=== PATIENT | male | born 1995 | race Caucasian/White ===

== ENCOUNTER 2021-01-15 11:35 | Inpatient (IN) | payer OTHER ==
[~2021-01-15] VITALS: Ht 172.7 cm; Wt 186.5 kg
[~2021-01-15 11:35] MED LIST: BACTRIM DS TAB1 EACH PO; KEFLEX250 MG PO; NEXIUM 40MG CAP40 MG PO; NORCO 5-325 TA1 EACH PO; ONDANSETRON ODT4 MG PO; PEPCID AC20 MG PO
[2021-01-15 12:14] LABS: BASOPHIL 0.2 % (0-2); EOSINOPHIL 0 % (0-5); HCT 41.9 % (42.0-52.0); HGB 13.1 g/dl (13.2-18.0); LYMPHOCYTE 9.5 % (15-48); MCH 25.1 pg (25.0-31.0); MCHC 31.3 g/dL (32.0-36.0); MCV 80.3 fL (78.0-100.0); MONOCYTE 7.8 % (0-12); MPV 9.4 fL (6.0-9.5); NEUTROPHIL 82.2 % (41-80); NRBC 0; PLT 123 K/uL (150-400); RBC 5.22 M/uL (4.70-6.00); WBC 6.4 K/uL (4.0-10.5)
[2021-01-15 12:37] LABS: ALBUMIN 2.8 g/dL (3.4-5.0); BILIRUBIN - TOTAL 0.4 mg/dL (0.2-1.0); CREATININE 0.75 mg/dL (0.67-1.17); GLOBULIN (CALCULATION) 4.6 g/dL; POTASSIUM 3.2 mmol/L (3.5-5.1); TOTAL PROTEIN 7.4 g/dL (6.4-8.2)
[2021-01-16 03:47] LABS: BASOPHIL 0 % (0-2); EOSINOPHIL 0 % (0-5); HCT 44.2 % (42.0-52.0); HGB 13.4 g/dl (13.2-18.0); LYMPHOCYTE 7.3 % (15-48); MCHC 30.3 g/dL (32.0-36.0); MCV 82.6 fL (78.0-100.0); MONOCYTE 7.7 % (0-12); MPV 9.6 fL (6.0-9.5); NEUTROPHIL 84.6 % (41-80); NRBC 0; PLT 138 K/uL (150-400); RBC 5.35 M/uL (4.70-6.00); RDW 14.2 % (11.5-14.0); WBC 4.7 K/uL (4.0-10.5)
[2021-01-16 04:26] LABS: ALBUMIN 2.7 g/dL (3.4-5.0); BILIRUBIN - TOTAL 0.3 mg/dL (0.2-1.0); BUN/CREAT RATIO (CALC) 10.7 RATIO; CREATININE 0.75 mg/dL (0.67-1.17); GLOBULIN (CALCULATION) 4.9 g/dL; TOTAL PROTEIN 7.6 g/dL (6.4-8.2)
[2021-01-16 04:40] LABS: C-REACTIVE PROTEIN 15.8 mg/dL (<=0.90)
[2021-01-18 06:15] LABS: BASOPHIL 0.1 % (0-2); EOSINOPHIL 0 % (0-5); HCT 40.3 % (42.0-52.0); HGB 12.2 g/dl (13.2-18.0); LYMPHOCYTE 8.9 % (15-48); MCH 25.3 pg (25.0-31.0); MCHC 30.3 g/dL (32.0-36.0); MCV 83.4 fL (78.0-100.0); MPV 9.2 fL (6.0-9.5); NEUTROPHIL 80.2 % (41-80); NRBC 0; PLT 188 K/uL (150-400); RBC 4.83 M/uL (4.70-6.00); RDW 14.6 % (11.5-14.0); WBC 8.7 K/uL (4.0-10.5)
[2021-01-18 06:35] LABS: ALBUMIN 2.6 g/dL (3.4-5.0); BILIRUBIN - TOTAL 0.3 mg/dL (0.2-1.0); CREATININE 0.5 mg/dL (0.67-1.17); GLOBULIN (CALCULATION) 3.6 g/dL; MAGNESIUM 2.2 mg/dL (1.8-2.4); POTASSIUM 3.7 mmol/L (3.5-5.1); TOTAL PROTEIN 6.2 g/dL (6.4-8.2)
--- NOTE | 2021-01-18 10:00 | NUR ---
01/18/21 Mr. Davis does not have a PCP. A referral was made to the [employer], Toby. A [facility] application is pending for Medicaid. - Mr. Davis chose [facility] should 02 be required at discharge. Mr. Davis was educated to financial applications available at [employer].
[2021-01-18 16:14] LABS: HCT 41.6 % (42.0-52.0); HGB 12.6 g/dl (13.2-18.0); MCH 25.1 pg (25.0-31.0); MCHC 30.3 g/dL (32.0-36.0); MPV 9.3 fL (6.0-9.5); RBC 5.01 M/uL (4.70-6.00); RDW 14.5 % (11.5-14.0)
[2021-01-19 07:38] LABS: CREATININE 0.5 mg/dL (0.67-1.17); MAGNESIUM 2.1 mg/dL (1.8-2.4); POTASSIUM 3.3 mmol/L (3.5-5.1)
--- NOTE | 2021-01-19 17:19 | NUR ---
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 PER DR CASTELLANO.
[2021-01-20 06:40] LABS: BASOPHIL 0.2 % (0-2); EOSINOPHIL 0.3 % (0-5); HCT 41.2 % (42.0-52.0); HGB 12.7 g/dl (13.2-18.0); MCH 25.1 pg (25.0-31.0); MCHC 30.8 g/dL (32.0-36.0); MCV 81.6 fL (78.0-100.0); MONOCYTE 8.5 % (0-12); MPV 9.9 fL (6.0-9.5); NEUTROPHIL 77.2 % (41-80); NRBC 0; PLT 233 K/uL (150-400); RBC 5.05 M/uL (4.70-6.00); RDW 14.2 % (11.5-14.0); WBC 9.1 K/uL (4.0-10.5)
[2021-01-20 07:19] LABS: ALBUMIN 2.5 g/dL (3.4-5.0); BILIRUBIN - TOTAL 0.3 mg/dL (0.2-1.0); BUN/CREAT RATIO (CALC) 19.6 RATIO; C-REACTIVE PROTEIN 2.5 mg/dL (<=0.90); CREATININE 0.56 mg/dL (0.67-1.17); POTASSIUM 3.4 mmol/L (3.5-5.1); TOTAL PROTEIN 6.5 g/dL (6.4-8.2)
[2021-01-21 07:00] LABS: BASOPHIL 0.2 % (0-2); EOSINOPHIL 0.5 % (0-5); HCT 42.2 % (42.0-52.0); LYMPHOCYTE 12.3 % (15-48); MCHC 30.8 g/dL (32.0-36.0); MCV 81.2 fL (78.0-100.0); MONOCYTE 8.4 % (0-12); MPV 9.2 fL (6.0-9.5); NEUTROPHIL 76.3 % (41-80); NRBC 0; PLT 267 K/uL (150-400); RDW 14.2 % (11.5-14.0); WBC 10.2 K/uL (4.0-10.5)
[2021-01-21 07:34] LABS: ALBUMIN 2.5 g/dL (3.4-5.0); BILIRUBIN - TOTAL 0.4 mg/dL (0.2-1.0); BUN/CREAT RATIO (CALC) 20.3 RATIO; C-REACTIVE PROTEIN 1.5 mg/dL (<=0.90); CREATININE 0.59 mg/dL (0.67-1.17); GLOBULIN (CALCULATION) 3.9 g/dL; POTASSIUM 3.8 mmol/L (3.5-5.1); TOTAL PROTEIN 6.4 g/dL (6.4-8.2)
[2021-01-22 05:19] LABS: BASOPHIL 0.2 % (0-2); EOSINOPHIL 0.6 % (0-5); HCT 43.6 % (42.0-52.0); HGB 13.4 g/dl (13.2-18.0); LYMPHOCYTE 14.4 % (15-48); MCH 25.1 pg (25.0-31.0); MCHC 30.7 g/dL (32.0-36.0); MCV 81.8 fL (78.0-100.0); MPV 9.3 fL (6.0-9.5); NEUTROPHIL 72.8 % (41-80); NRBC 0; PLT 292 K/uL (150-400); RBC 5.33 M/uL (4.70-6.00); RDW 14.6 % (11.5-14.0); WBC 10.5 K/uL (4.0-10.5)
[2021-01-22 05:31] LABS: ALBUMIN 2.7 g/dL (3.4-5.0); BILIRUBIN - TOTAL 0.4 mg/dL (0.2-1.0); BUN/CREAT RATIO (CALC) 22.4 RATIO; C-REACTIVE PROTEIN 1.1 mg/dL (<=0.90); CREATININE 0.58 mg/dL (0.67-1.17); GLOBULIN (CALCULATION) 3.9 g/dL; POTASSIUM 4.1 mmol/L (3.5-5.1); TOTAL PROTEIN 6.6 g/dL (6.4-8.2)
[2021-01-23 05:05] LABS: BASOPHIL 0.1 % (0-2); EOSINOPHIL 0.2 & (0-5); HCT 44.3 % (42.0-52.0); HGB 13.8 g/dl (13.2-18.0); LYMPHOCYTE 8.2 % (15-48); MCH 25.3 pg (25.0-31.0); MCHC 31.2 g/dL (32.0-36.0); MCV 81.3 fL (78.0-100.0); MONOCYTE 8.9 % (0-12); NEUTROPHIL 80.7 % (41-80); PLT 302 K/uL (150-400); RBC 5.45 M/uL (4.70-6.00); RDW 14.4 % (11.5-14.0); WBC 12.45 K/uL (4.0-10.5)
[2021-01-23 05:10] LABS: ALBUMIN 2.8 g/dL (3.4-5.0); BILIRUBIN - TOTAL 0.4 mg/dL (0.2-1.0); BUN/CREAT RATIO (CALC) 23.1 RATIO; CREATININE 0.52 mg/dL (0.67-1.17); POTASSIUM 4.3 mmol/L (3.5-5.1); TOTAL PROTEIN 6.8 g/dL (6.4-8.2)
[2021-01-24 04:16] LABS: BASOPHIL 0.1 % (0-2); EOSINOPHIL 0.5 & (0-5); HCT 44.9 % (42.0-52.0); HGB 13.6 g/dl (13.2-18.0); MCH 24.9 pg (25.0-31.0); MCHC 30.3 g/dL (32.0-36.0); MCV 82.1 fL (78.0-100.0); MPV 8.9 fL (6.0-9.5); NEUTROPHIL 77.9 % (41-80); PLT 295 K/uL (150-400); RBC 5.47 M/uL (4.70-6.00); RDW 14.6 % (11.5-14.0); WBC 12.28 K/uL (4.0-10.5)
[2021-01-24 04:50] LABS: ALBUMIN 2.7 g/dL (3.4-5.0); BILIRUBIN - TOTAL 0.3 mg/dL (0.2-1.0); BUN/CREAT RATIO (CALC) 21.7 RATIO; C-REACTIVE PROTEIN 0.3 mg/dL (<=0.90); CREATININE 0.69 mg/dL (0.67-1.17); GLOBULIN (CALCULATION) 3.8 g/dL; POTASSIUM 4.1 mmol/L (3.5-5.1); TOTAL PROTEIN 6.5 g/dL (6.4-8.2)
[2021-01-25 08:09] LABS: BASOPHIL 0.2 % (0-2); EOSINOPHIL 0.3 % (0-5); HCT 45.6 % (42.0-52.0); HGB 14.1 g/dl (13.2-18.0); LYMPHOCYTE 15.2 % (15-48); MCH 25.4 pg (25.0-31.0); MCHC 30.9 g/dL (32.0-36.0); MONOCYTE 11.2 % (0-12); MPV 9.1 fL (6.0-9.5); NEUTROPHIL 71.5 % (41-80); NRBC 0; PLT 279 K/uL (150-400); RBC 5.56 M/uL (4.70-6.00); RDW 14.7 % (11.5-14.0); WBC 12.6 K/uL (4.0-10.5)
[2021-01-25 09:24] LABS: ALBUMIN 2.8 g/dL (3.4-5.0); ALKALINE PHOSHATASE 42 U/L (46-116); ALT 124 U/L (16-63); AST 23 U/L (15-37); BILIRUBIN - TOTAL 0.3 mg/dL (0.2-1.0); BUN 14 mg/dL (7-18); CHLORIDE 103 mmol/L (98-107); CO2 (BICARBONATE) 28 mmol/L (21-32); CREATININE 0.56 mg/dL (0.67-1.17); GLOBULIN (CALCULATION) 3.8 g/dL; GLUCOSE 84 mg/dL (74-106); TOTAL PROTEIN 6.6 g/dL (6.4-8.2)
[2021-01-25 09:25] LABS: C-REACTIVE PROTEIN < 0.20 mg/dL (<=0.90)
[2021-01-25] MEDS ORDERED: DULERA 200 MCG8.8 GM INH (13:28)
--- NOTE | 2021-01-25 14:08 | NUR ---
01/25/21 Patient was discharged home. 02 was not required.
== END 2021-01-25 14:05 | disposition home or self-care (01) | DRG 177 ==
LOC: FER 11:35 → FTCU 15:36 → FMS 15:36 → FTCU 19:52 → FMS 01-24 15:56
PROVIDERS: Emergency Medicine; Internal Medicine; Nurse Practitioner; ADMIT Internal Medicine
PROC: XW033E5 Introduction of Remdesivir Anti-infective into Peripheral Vein, Percutaneous Approach, New Technology Group 5 (ICD-10-PCS; principal; 2021-01-15)
PROC: XW0DXM6 Introduction of Baricitinib into Mouth and Pharynx, External Approach, New Technology Group 6 (ICD-10-PCS; 2021-01-18)
DX: U07.1 COVID-19 (principal); J96.01 Acute respiratory failure with hypoxia; J12.82 Pneumonia due to coronavirus disease 2019; Z68.44 Body mass index [BMI] 60.0-69.9, adult; E66.01 Morbid (severe) obesity due to excess calories; J45.909 Unspecified asthma, uncomplicated; K21.9 Gastro-esophageal reflux disease without esophagitis; Z90.89 Acquired absence of other organs
CPT/HCPCS: 36415; 36600; 71045; 71250; 71275; 80048; 80053; 82728; 82803; 83036; 83605; 83615; 83735; 84145; 84484; 85025; 86140; 94010; 94640; 94660; 94667; 94668; C9399; J0456; J1100; J1650; J2405; J7050; Q9967; U0002